=== PATIENT | female | born 1965 | race Two or more races ===

== ENCOUNTER 2017-04-29 19:27 | Emergency (ER) | payer OTHER ==
[~2017-04-29] VITALS: Ht 157.5 cm; Wt 71.2 kg
== END 2017-04-29 22:24 | disposition home or self-care (01) ==
LOC: ER 19:27 → EDBD 20:04 → ER 20:04
DX: B34.9 Viral infection, unspecified (principal); J09.X2 Influenza due to identified novel influenza A virus with other respiratory manifestations

== ENCOUNTER 2020-08-29 01:09 | Emergency (ER) | payer OTHER ==
[~2020-08-29] VITALS: Ht 157.5 cm; Wt 60.3 kg
[2020-08-29] MEDS ORDERED: FORTAMET500 MG (01:24)
[2020-08-29] MEDS ORDERED: ZOFRAN8 MG PO ×2 (05:19)
[2020-08-29] MEDS ORDERED: LEVSIN/SL0.125 MG SL (05:19)
[2020-08-29] MEDS ORDERED: PEPCID40 MG PO (05:19)
[2020-08-29] MEDS ORDERED: PROTONIX40 MG PO (05:19)
== END 2020-08-29 05:51 | disposition home or self-care (01) ==
LOC: ER 01:09
DX: K29.70 Gastritis, unspecified, without bleeding (principal); E11.9 Type 2 diabetes mellitus without complications

== ENCOUNTER 2020-11-22 02:04 | Emergency (ER) | payer OTHER ==
[~2020-11-22] VITALS: Ht 157.5 cm; Wt 59.4 kg
[~2020-11-22 02:04] MED LIST: FORTAMET500 MG; LEVSIN/SL0.125 MG SL; PEPCID40 MG PO; PROTONIX40 MG PO; ZOFRAN8 MG PO
[2020-11-22] MEDS ORDERED: COZAAR25 MG (02:55)
== END 2020-11-22 05:14 | disposition home or self-care (01) ==
LOC: ER 02:04
DX: R05.9 Cough, unspecified (principal); Z03.818 Encounter for observation for suspected exposure to other biological agents ruled out

== ENCOUNTER 2021-01-20 22:55 | Emergency (ER) | payer OTHER ==
[~2021-01-20] VITALS: Ht 157.5 cm; Wt 61.7 kg
[~2021-01-20 22:55] MED LIST changes: +COZAAR25 MG
[2021-01-20] MEDS ORDERED: METFORMIN HCL1000 M2 (23:12)
[2021-01-20] MEDS ORDERED: TRADJENTA5 MG (23:13)
[2021-01-21] MEDS ORDERED: ACETAMINOPHEN650 M2 PO (02:49)
[2021-01-21] MEDS ORDERED: MUCINEX DM ER1 EAC1 PO (02:49)
== END 2021-01-21 02:53 | disposition home or self-care (01) ==
LOC: ER 22:55
DX: J11.1 Influenza due to unidentified influenza virus with other respiratory manifestations (principal); Z20.822 Contact with and (suspected) exposure to COVID-19

== ENCOUNTER 2021-01-22 23:55 | Inpatient (IN) | payer OTHER ==
[~2021-01-22] VITALS: Ht 66 cm; Wt 61.7 kg
[~2021-01-22 23:55] MED LIST changes: +ACETAMINOPHEN650 M2 PO; +METFORMIN HCL1000 M2; +MUCINEX DM ER1 EAC1 PO; +TRADJENTA5 MG
--- NOTE | 2021-01-23 00:04 | NUR ---
PTE SE RECIBE POR ASMA Y DIFICULDAD PARA RESPIRAL REFIERE PTE.
--- NOTE | 2021-01-23 00:17 | NUR ---
NOTA PTE REFIERE TIENE INFLUENZA.
--- NOTE | 2021-01-23 00:42 | NUR ---
TX. OFRECIDO POR MIS. LIAN QUIEN ORIENTA AL PACIENTE SOBRE EL TX. CANALIZA Y ADMINISTRA MEDICAMENTOS GARRY ORDEN MEDICA.
--- NOTE | 2021-01-23 07:28 | NUR ---
SE RECIBE PACIENTE DE TURNO ANTERIOR, ALERTA Y ORIENTADA X 3, EN JAUN CON MEDIDAS DE SEGURIDAD. H/L PATENTE, CATARINA DE EDEMAS Y ENROJECIMIENTOS. PENDIENTE CHEST XRAY Y CONSULTA CON DR. CAROLINE HERNANDEZ.
--- NOTE | 2021-01-23 10:38 | NUR ---
SE LE VUELVE A COLOCAR UN SALIN LOCK EN EL BRAZO DERECESAR YA QUE LA VENA DEL BRAZO MANUEL NO ESTABA PATENTE.
--- NOTE | 2021-01-23 12:39 | NUR ---
EVALUADA POR QUIEN ORDENA TRATAMIENTO MEDICO, PACIENTE ES ADMITIDA A PISO. SE LE SON MUESTRAS GARRY ORDEN MEDICA, TOMANDO MEDIDAS ASEPTICAS. SE LE ADMINISTRAN MEDICAMENTOS GARRY ORDEN MEDICA Y SE MANTIENE EN OBSERVACION PARA TRASLADO A PISO. SE LE REALIZA EKG, EVALUADO POR ZACK.
== END 2021-01-26 15:42 | disposition home or self-care (01) | DRG 203 ==
LOC: ER 23:55 → SURH 01-23 16:28
PROVIDERS: ADMIT Internal Medicine; ATTEND Internal Medicine
PROC: 3E0F7SF Introduction of Other Gas into Respiratory Tract, Via Natural or Artificial Opening (ICD-10-PCS; principal; 2021-01-23)
DX: J45.998 Other asthma (principal); I10 Essential (primary) hypertension; Z20.822 Contact with and (suspected) exposure to COVID-19; E11.9 Type 2 diabetes mellitus without complications; Z79.4 Long term (current) use of insulin

== ENCOUNTER 2021-01-27 04:38 | Emergency (ER) | payer OTHER ==
[~2021-01-27] VITALS: Ht 157.5 cm; Wt 59.9 kg
== END 2021-01-27 10:43 | disposition home or self-care (01) ==
LOC: ER 04:38
DX: J40 Bronchitis, not specified as acute or chronic (principal); I10 Essential (primary) hypertension; E11.9 Type 2 diabetes mellitus without complications; Z20.822 Contact with and (suspected) exposure to COVID-19

== ENCOUNTER 2021-02-01 07:34 | Emergency (ER) | payer OTHER ==
[~2021-02-01] VITALS: Ht 157.5 cm; Wt 59.9 kg
[2021-02-01] MEDS ORDERED: NORFLEX100MG PO (10:14)
[2021-02-01] MEDS ORDERED: ZANAFLEX4 M1 PO (10:14)
[2021-02-01] MEDS ORDERED: NABUMETONE500 MG PO (10:14)
== END 2021-02-01 10:26 | disposition home or self-care (01) ==
LOC: ER 07:34
DX: M54.59 Other low back pain (principal); M79.604 Pain in right leg

== ENCOUNTER 2021-02-02 03:38 | Emergency (ER) | payer OTHER ==
[~2021-02-02] VITALS: Ht 157.5 cm; Wt 59.4 kg
[~2021-02-02 03:38] MED LIST changes: +NABUMETONE500 MG PO; +NORFLEX100MG PO; +ZANAFLEX4 M1 PO
== END 2021-02-02 13:00 | disposition home or self-care (01) ==
LOC: ER 03:38
DX: M25.559 Pain in unspecified hip (principal); M19.90 Unspecified osteoarthritis, unspecified site; E11.9 Type 2 diabetes mellitus without complications; I10 Essential (primary) hypertension; Z79.84 Long term (current) use of oral hypoglycemic drugs

== ENCOUNTER 2021-07-20 04:39 | Emergency (ER) | payer OTHER ==
[~2021-07-20] VITALS: Ht 157.5 cm; Wt 62.6 kg
== END 2021-07-20 10:12 | disposition home or self-care (01) ==
LOC: ER 04:39
DX: M25.551 Pain in right hip (principal)

== ENCOUNTER → 2021-07-23 | Emergency (ER) | payer OTHER ==
[~2021-07-23] VITALS: Ht 157.5 cm; Wt 62.6 kg
[~2021-07-23] MED LIST changes: +PERCOCET 5-3251 EACH PO; +ULTRAM50 MG PO
== END | disposition home or self-care (01) ==
LOC: ER 04:05
DX: M54.50 Low back pain, unspecified (principal)

== ENCOUNTER 2021-07-24 04:52 | Emergency (ER) | payer OTHER ==
[~2021-07-24] VITALS: Ht 157.5 cm; Wt 62.6 kg
[~2021-07-24 04:52] MED LIST changes: -ULTRAM50 MG PO
[2021-07-24] MEDS ORDERED: ULTRAM50 MG PO (07:08)
== END 2021-07-24 07:32 ==
LOC: ER 04:52
DX: M25.551 Pain in right hip (principal); E11.9 Type 2 diabetes mellitus without complications; Z79.4 Long term (current) use of insulin; I10 Essential (primary) hypertension

== ENCOUNTER 2022-06-05 03:00 | Emergency (ER) | payer OTHER ==
[~2022-06-05] VITALS: Ht 157.5 cm; Wt 71.7 kg
[~2022-06-05 03:00] MED LIST changes: +ULTRAM50 MG PO
== END 2022-06-05 08:02 | disposition home or self-care (01) ==
LOC: ER 03:00
DX: R05.8 Other specified cough (principal); E13.69 Other specified diabetes mellitus with other specified complication; I10 Essential (primary) hypertension

== ENCOUNTER 2022-12-08 01:27 | Emergency (ER) | payer OTHER ==
[~2022-12-08] VITALS: Ht 157.5 cm; Wt 68.9 kg
== END 2022-12-08 02:56 | disposition home or self-care (01) ==
LOC: ER 01:27
DX: K59.1 Functional diarrhea (principal)

== ENCOUNTER 2022-12-09 01:23 | Emergency (ER) | payer OTHER ==
[~2022-12-09] VITALS: Ht 157.5 cm; Wt 68.9 kg
== END 2022-12-09 06:47 | disposition home or self-care (01) ==
LOC: ER 01:23
DX: K29.70 Gastritis, unspecified, without bleeding (principal)

== ENCOUNTER 2022-12-13 18:34 | Emergency (ER) | payer OTHER ==
[~2022-12-13] VITALS: Ht 162.6 cm; Wt 99.8 kg
[2022-12-13 20:54] LABS: URINE APPEARANCE Clear; URINE BILIRRUBIN Negative (NEGATIVE); URINE BLOOD Trace; URINE COLOR Yellow; URINE LEUKOCYTE Negative; URINE NITRATE Negative; URINE UROBILINOGEN 0.2 E.U./dl
[2022-12-13 20:56] LABS: HEMATOCRIT 34.6 % (36.0-45.00); HEMOGLOBIN 11.4 g/dL (12.0-15.00); MEAN CELL VOLUME 82.7 fL (80.00-100.00); MEAN CORPUSCULAR HEMOGLOBIN 27.1 pg (27.00-32.0); MEAN CORPUSCULAR HGB CONC 32.8 g/dl (32.0-36.0); PLATELET COUNT 327 K/uL (150-450); RED BLOOD COUNT 4.18 M/uL (4.00-6.00); RED CELL DISTRIBUTION WIDTH 13.5 % (11.5-14.5)
[2022-12-13 20:58] LABS: URINE BACTERIA 2.5 uL (0.0-1933); URINE EPITHELIAL CELLS 5.2 uL (0.0-38.8); URINE GLUCOSE >=1000 MG/DL (NEGATIVE); URINE PROTEIN 100 (NEGATIVE); URINE RBC 5.6 uL (0.0-20.8); URINE WBC 2.3 uL (0.0-23.2)
[2022-12-13 21:57] LABS: ABG PH 7.444 (7.35-7.45); ABG PO2 100.1 mmHg (80-100); ABG pCO2 34.7 mmHg (35-45); BASE EXCESS -0.2 mmol/l; BICARBONATE 23.3 mmol/l (23-25); Tco2 24.4 mmol/l
[2022-12-13 22:01] LABS: allen test SATISFACTORY; o2 21 %; puncture site RADIAL RIGHT
== END 2022-12-13 22:15 | disposition home or self-care (01) ==
LOC: ER 18:34
PROVIDERS: General Practice
DX: R05.9 Cough, unspecified (principal); Z87.09 Personal history of other diseases of the respiratory system; E11.9 Type 2 diabetes mellitus without complications; Z79.84 Long term (current) use of oral hypoglycemic drugs; I10 Essential (primary) hypertension; Z20.822 Contact with and (suspected) exposure to COVID-19

== ENCOUNTER 2023-09-10 16:52 | Emergency (ER) | payer OTHER ==
[~2023-09-10] VITALS: Ht 157.5 cm; Wt 68.9 kg
[2023-09-10] MEDS ORDERED: COZAAR100 MG PO (17:30)
[2023-09-10] MEDS ORDERED: METFORMIN HCL1000 M2 PO (17:31)
[2023-09-10] MEDS ORDERED: ONDANSETRON HCL 2 MG/ML VIAL ONE (18:29)
[2023-09-10] MEDS ORDERED: 0.9 % SODIUM CHLORIDE 1,000 ML IV ONE (18:30)
[2023-09-10] MEDS ORDERED: ONDANSETRON HCL 2 MG/ML VIAL IV ONE (18:30)
[2023-09-10 19:13] LABS: HEMATOCRIT 35.6 % (36.0-45.00); HEMOGLOBIN 11.8 g/dL (12.0-15.00); MEAN CORPUSCULAR HEMOGLOBIN 27.8 pg (27.00-32.0); MEAN CORPUSCULAR HGB CONC 33.1 g/dl (32.0-36.0); PLATELET COUNT 220 K/uL (150-450); RED BLOOD COUNT 4.24 M/uL (4.00-6.00); RED CELL DISTRIBUTION WIDTH 13.6 % (11.5-14.5)
[2023-09-10 19:24] LABS: ALBUMIN 3.6 gm/dL (3.4-5.0); BILIRUBIN TOTAL 0.3 mg/dL (0.3-1.2); CALCIUM 9.4 mg/dL (8.5-10.1); CREATININE SERUM 0.64 mg/dL (0.55-1.02); GFR 95.99; GLOBULINA 3.6 G/DL (2.4-3.5); POTASSIUM 4.27 mEq/L (3.5-5.1); TOTAL PROTEIN 7.2 gm/dL (6.4-8.2)
[2023-09-10 21:32] LABS: PH,URINE 6.5 (5.0-8.0); URINE APPEARANCE Clear; URINE BILIRRUBIN Negative (NEGATIVE); URINE BLOOD Negative; URINE COLOR Yellow; URINE LEUKOCYTE Negative; URINE NITRATE Negative; URINE PROTEIN Trace (NEGATIVE)
[2023-09-10 21:36] LABS: URINE BACTERIA 57.9 uL (0.0-1933); URINE EPITHELIAL CELLS 2.4 uL (0.0-38.8); URINE RBC 4.1 uL (0.0-20.8); URINE WBC 3.7 uL (0.0-23.2)
[2023-09-10 21:48] LABS: URINE GLUCOSE 250 MG/DL (NEGATIVE)
[2023-09-11] MEDS ORDERED: FAMOTIDINE/PF 20 MG/2 ML VIAL IV PUSH STA (01:43)
[2023-09-11] MEDS ORDERED: PEPCID40 MG PO (01:47)
[2023-09-11] MEDS ORDERED: ONDANSETRON ODT8 MG PO (01:47)
[2023-09-11] MEDS ORDERED: INTESTINEX680 M2 PO (01:47)
== END 2023-09-11 02:04 ==
LOC: ER 16:53
PROVIDERS: Emergency Medicine
DX: K52.89 Other specified noninfective gastroenteritis and colitis (principal); I10 Essential (primary) hypertension; Z20.822 Contact with and (suspected) exposure to COVID-19; E11.9 Type 2 diabetes mellitus without complications; Z79.84 Long term (current) use of oral hypoglycemic drugs; K44.9 Diaphragmatic hernia without obstruction or gangrene

== ENCOUNTER 2024-04-15 07:15 | Emergency (ER) | payer OTHER ==
[~2024-04-15] VITALS: Ht 157.5 cm; Wt 68.5 kg
[~2024-04-15 07:15] MED LIST changes: +COZAAR100 MG PO; +INTESTINEX680 M2 PO; +METFORMIN HCL1000 M2 PO; +ONDANSETRON ODT8 MG PO
[2024-04-15 08:55] LABS: HEMATOCRIT 38.4 % (36.0-45.00); HEMOGLOBIN 12.8 g/dL (12.0-15.00); MEAN CELL VOLUME 84.3 fL (80.00-100.00); MEAN CORPUSCULAR HEMOGLOBIN 28.1 pg (27.00-32.0); MEAN CORPUSCULAR HGB CONC 33.3 g/dl (32.0-36.0); PLATELET COUNT 264 K/uL (150-450); RED BLOOD COUNT 4.55 M/uL (4.00-6.00); RED CELL DISTRIBUTION WIDTH 13.3 % (11.5-14.5)
[2024-04-15 09:15] LABS: CALCIUM 10.2 mg/dL (8.5-10.1); CREATININE SERUM 0.66 mg/dL (0.55-1.02); GFR 92.31; POTASSIUM 4.64 mEq/L (3.5-5.1)
[2024-04-15 09:40] LABS: URINE APPEARANCE Clear; URINE BILIRRUBIN Negative (NEGATIVE); URINE BLOOD Negative; URINE COLOR Yellow; URINE GLUCOSE Negative (NEGATIVE); URINE KETONE Negative (NEGATIVE); URINE LEUKOCYTE Trace; URINE NITRATE Negative; URINE PROTEIN Trace (NEGATIVE); URINE UROBILINOGEN 0.2 E.U./dl
[2024-04-15 09:44] LABS: URINE BACTERIA 8.5 uL (0.0-1933); URINE EPITHELIAL CELLS 6.4 uL (0.0-38.8); URINE RBC 4.2 uL (0.0-20.8); URINE WBC 6.9 uL (0.0-23.2)
[2024-04-15 09:58] LABS: URINE CAST 0.14 uL (0.0-1.40)
== END 2024-04-15 11:18 | disposition home or self-care (01) ==
LOC: ER 07:18
PROVIDERS: General Practice
DX: R10.9 Unspecified abdominal pain (principal); E78.00 Pure hypercholesterolemia, unspecified; I10 Essential (primary) hypertension

== ENCOUNTER 2024-06-12 18:24 | Emergency (ER) | payer OTHER ==
[~2024-06-12] VITALS: Ht 157.5 cm; Wt 68.0 kg
[2024-06-12] MEDS ORDERED: TRADJENTA5 MG PO (19:11)
== END 2024-06-12 19:47 | disposition home or self-care (01) ==
LOC: ER 18:24
DX: R05.9 Cough, unspecified (principal); E11.9 Type 2 diabetes mellitus without complications; Z79.84 Long term (current) use of oral hypoglycemic drugs; I10 Essential (primary) hypertension

== ENCOUNTER 2024-09-09 02:42 | Emergency (ER) | payer OTHER ==
[~2024-09-09] VITALS: Ht 157.5 cm; Wt 68.0 kg
[~2024-09-09 02:42] MED LIST changes: +TRADJENTA5 MG PO
[2024-09-09] MEDS ORDERED: JENTADUETO XR1 EAC1 PO (02:48)
[2024-09-09] MEDS ORDERED: GUAIFENESIN 200 MG/10 ML BLIST.PACK PO STA (05:00)
[2024-09-09] MEDS ORDERED: GUAIFENESIN 200 MG/10 ML BLIST.PACK PO ONE (05:08)
[2024-09-09] MEDS ORDERED: ZYNCOF 20-400120 ML PO (06:27)
[2024-09-09] MEDS ORDERED: SINGULAIR10 MG PO (06:27)
== END 2024-09-09 06:33 ==
LOC: ER 02:42
DX: R05.8 Other specified cough (principal); J40 Bronchitis, not specified as acute or chronic; E11.9 Type 2 diabetes mellitus without complications; Z79.84 Long term (current) use of oral hypoglycemic drugs; I10 Essential (primary) hypertension

== ENCOUNTER 2024-09-14 08:31 | Emergency (ER) | payer OTHER ==
[~2024-09-14] VITALS: Ht 152.4 cm; Wt 66.2 kg
[~2024-09-14 08:31] MED LIST changes: +JENTADUETO XR1 EAC1 PO; +SINGULAIR10 MG PO; +ZYNCOF 20-400120 ML PO
[2024-09-14] MEDS ORDERED: BENZONATATE 200 MG CAPSULE PO ONE (09:00)
[2024-09-14] MEDS ORDERED: KETOROLAC TROMETHAMINE 60 MG VIAL IM ONE (09:00)
[2024-09-14 09:57] LABS: BASO % 0.6 % (0.1-1.2); EOS # 0.23 (0.04-0.54); EOS % 3.7 % (0.7-7.0); LYMPH # 1.72 (1.18-3.74); LYMPH % 27.8 % (19.3-53.1); MEAN PLATELET VOLUME 11.00 fl (9.4-12.4); MONO # 0.68 (0.24-0.82); MONO % 11.0 % (4.7-12.5); NEUT # 3.49 (1.56-6.13); NEUT % 56.6 % (34.0-71.1); RED CELL DISTRIBUTION WIDTH 12.8 % (11.6-14.4)
[2024-09-14 10:28] LABS: ALT/SGPT 22.0 U/L (12-78); AST/SGOT 18.0 U/L (15-37); BILIRUBIN TOTAL 0.4 mg/dL (0.3-1.2); BUN CREA RATIO 32.0 (7.0-25.0); CREATININE SERUM 0.75 mg/dL (0.55-1.02); GFR 79.65; GLOBULINA 3.6 G/DL (2.4-3.5); GLUCOSE FASTING 157.0 mg/dL (65-100); OSMOLALITY SERUM 285.0 MOSM/KG (275-295)
[2024-09-14 10:57] LABS: COVID-19 AG NEGATIVE (NEGATIVE)
[2024-09-14 11:17] LABS: ABG PH 7.402 (7.35-7.45)
[2024-09-14 11:18] LABS: ABG PO2 97.0 mmHg (80-100); BICARBONATE 23.7 mmol/l (23-25); o2 21 %
[2024-09-14] MEDS ORDERED: SINGULAIR10 MG PO (11:22)
[2024-09-14] MEDS ORDERED: BENZONATATE200 M1 PO (11:22)
[2024-09-14] MEDS ORDERED: PROAIR RESPICL90 MCG IH (11:22)
[2024-09-14] MEDS ORDERED: LEVALBUTER0.63 MG/3 IH (11:22)
[2024-09-14] MEDS ORDERED: PEPCID AC20 MG PO (11:22)
== END 2024-09-14 11:28 | disposition home or self-care (01) ==
LOC: ER 08:31
PROVIDERS: General Practice
DX: R05.9 Cough, unspecified (principal); Z20.822 Contact with and (suspected) exposure to COVID-19; E11.9 Type 2 diabetes mellitus without complications; Z79.84 Long term (current) use of oral hypoglycemic drugs; I10 Essential (primary) hypertension

== ENCOUNTER 2024-09-18 04:47 | Emergency (ER) | payer OTHER ==
[~2024-09-18] VITALS: Ht 157.5 cm; Wt 68.0 kg
[~2024-09-18 04:47] MED LIST changes: +BENZONATATE200 M1 PO; +LEVALBUTER0.63 MG/3 IH; +PEPCID AC20 MG PO; +PROAIR RESPICL90 MCG IH
[2024-09-18] MEDS ORDERED: HYDROCODONE/CHLORPHEN P-STIREX 5 ML ML PO STA (06:19)
[2024-09-18 07:07] LABS: BASO % 0.5 % (0.1-1.2); EOS # 0.35 (0.04-0.54); EOS % 4.3 % (0.7-7.0); LYMPH # 2.81 (1.18-3.74); LYMPH % 34.5 % (19.3-53.1); MEAN PLATELET VOLUME 11.00 fl (9.4-12.4); MONO # 0.65 (0.24-0.82); MONO % 8.0 % (4.7-12.5); NEUT # 4.27 (1.56-6.13); NEUT % 52.5 % (34.0-71.1); RED CELL DISTRIBUTION WIDTH 12.5 % (11.6-14.4)
[2024-09-18 08:57] LABS: COVID-19 AG POSITIVE (NEGATIVE)
== END 2024-09-18 11:02 | disposition home or self-care (01) ==
LOC: ER 04:47
DX: U07.1 COVID-19 (principal); E11.9 Type 2 diabetes mellitus without complications; Z79.84 Long term (current) use of oral hypoglycemic drugs; I10 Essential (primary) hypertension

== ENCOUNTER 2024-09-24 19:14 | Emergency (ER) | payer OTHER ==
[~2024-09-24] VITALS: Ht 157.5 cm; Wt 68.0 kg
== END 2024-09-25 01:46 | disposition home or self-care (01) ==
LOC: ER 19:14
DX: J30.9 Allergic rhinitis, unspecified (principal); R05.9 Cough, unspecified; I10 Essential (primary) hypertension; E11.9 Type 2 diabetes mellitus without complications; Z79.84 Long term (current) use of oral hypoglycemic drugs

== ENCOUNTER 2025-01-21 15:16 | Emergency (ER) | payer OTHER ==
[~2025-01-21] VITALS: Ht 157.5 cm; Wt 68.0 kg
[2025-01-21] MEDS ORDERED: GUAIFENESIN/DEXTROMETHORPHAN 100MG/10ML BLIST.PACK PO ONE ×2 (17:00→17:32)
[2025-01-21] MEDS ORDERED: METHYLPREDNISOLONE SOD SUCC 125 MG VIAL IV ONE (17:00)
[2025-01-21] MEDS ORDERED: IPRATROPIUM/ALBUTEROL SULFATE 3 ML AMPUL.NEB IH ONE ×2 (17:00→19:17)
[2025-01-21] MEDS ORDERED: METHYLPREDNISOLONE SOD SUCC 125 MG VIAL ONE (17:32)
[2025-01-21 18:07] LABS: BASO % 0.9 % (0.1-1.2); EOS # 0.33 (0.04-0.54); EOS % 4.9 % (0.7-7.0); LYMPH # 1.56 (1.18-3.74); LYMPH % 23.0 % (19.3-53.1); MEAN PLATELET VOLUME 11.00 fl (9.4-12.4); MONO # 0.71 (0.24-0.82); MONO % 10.5 % (4.7-12.5); NEUT # 4.09 (1.56-6.13); NEUT % 60.3 % (34.0-71.1); RED CELL DISTRIBUTION WIDTH 12.9 % (11.6-14.4)
[2025-01-21 19:13] LABS: COVID-19 AG NEGATIVE (NEGATIVE)
[2025-01-21] MEDS ORDERED: XOPENEX CO1.25 MG/0. IH (20:58)
[2025-01-21] MEDS ORDERED: ZITHROMAX500 MG PO (20:58)
[2025-01-21] MEDS ORDERED: BENZONATATE200 M1 PO (20:58)
[2025-01-21] MEDS ORDERED: MEDROLPACK PO (20:58)
[2025-01-21] MEDS ORDERED: IPRATROPIU0.2 MG/1 M IH (20:58)
== END 2025-01-21 21:18 | disposition home or self-care (01) ==
LOC: ER 15:17
PROVIDERS: General Practice
DX: J00 Acute nasopharyngitis [common cold] (principal); I10 Essential (primary) hypertension; Z20.822 Contact with and (suspected) exposure to COVID-19; E11.9 Type 2 diabetes mellitus without complications; Z79.84 Long term (current) use of oral hypoglycemic drugs

== ENCOUNTER 2025-01-24 14:31 | Emergency (ER) | payer OTHER ==
[~2025-01-24] VITALS: Ht 157.5 cm; Wt 65.8 kg
[~2025-01-24 14:31] MED LIST changes: +IPRATROPIU0.2 MG/1 M IH; +MEDROLPACK PO; +XOPENEX CO1.25 MG/0. IH; +ZITHROMAX500 MG PO
[2025-01-24] MEDS ORDERED: MAGNESIUM SULFATE IN WATER 50 ML IV ONE (15:45)
[2025-01-24] MEDS ORDERED: IPRATROPIUM BROMIDE 0.5 MG/2.5 ML AMPUL.NEB IH ONE ×2 (15:45→16:07)
[2025-01-24] MEDS ORDERED: LEVALBUTEROL HCL 1.25 MG/3 ML SOLUTION IH ONE ×2 (15:45→16:07)
[2025-01-24 16:57] LABS: BASO % 0.3 % (0.1-1.2); EOS # 0.04 (0.04-0.54); EOS % 0.5 % (0.7-7.0); LYMPH # 1.58 (1.18-3.74); LYMPH % 21.4 % (19.3-53.1); MEAN PLATELET VOLUME 10.70 fl (9.4-12.4); MONO # 0.41 (0.24-0.82); MONO % 5.5 % (4.7-12.5); NEUT # 5.32 (1.56-6.13); NEUT % 71.9 % (34.0-71.1); RED CELL DISTRIBUTION WIDTH 12.7 % (11.6-14.4)
[2025-01-24 17:24] LABS: ALT/SGPT 34.0 U/L (12-78); AST/SGOT 17.0 U/L (15-37); BILIRUBIN TOTAL 0.26 mg/dL (0.3-1.2); BUN CREA RATIO 24.0 (7.0-25.0); CREATININE SERUM 0.63 mg/dL (0.55-1.02); GFR 97.06; GLOBULINA 4.0 G/DL (2.4-3.5); GLUCOSE FASTING 173.0 mg/dL (65-100); OSMOLALITY SERUM 281.0 MOSM/KG (275-295)
[2025-01-24 18:09] LABS: COVID-19 AG NEGATIVE (NEGATIVE)
[2025-01-24] MEDS ORDERED: LEVOFLOXACIN750 MG PO (19:06)
== END 2025-01-24 23:45 | disposition home or self-care (01) ==
LOC: ER 14:32
PROVIDERS: General Practice
DX: B34.9 Viral infection, unspecified (principal); J06.9 Acute upper respiratory infection, unspecified; J45.901 Unspecified asthma with (acute) exacerbation; Z20.822 Contact with and (suspected) exposure to COVID-19; I10 Essential (primary) hypertension; E11.9 Type 2 diabetes mellitus without complications; Z79.84 Long term (current) use of oral hypoglycemic drugs

== ENCOUNTER 2025-01-27 13:02 | Emergency (ER) | payer OTHER ==
[~2025-01-27] VITALS: Ht 157.5 cm; Wt 68.0 kg
[~2025-01-27 13:02] MED LIST changes: +LEVOFLOXACIN750 MG PO
[2025-01-27] MEDS ORDERED: 0.9 % SODIUM CHLORIDE 500 ML IV STA (15:24)
[2025-01-27] MEDS ORDERED: BUDESONIDE 0.5 MG/2 ML AMPUL.NEB IH STA (15:24)
[2025-01-27] MEDS ORDERED: LEVALBUTEROL HCL 1.25 MG/3 ML SOLUTION IH SCH (15:30)
[2025-01-27] MEDS ORDERED: LEVALBUTEROL HCL 0.63 MG/3 ML SOLUTION IH ONE (16:14)
[2025-01-27] MEDS ORDERED: BUDESONIDE 0.25 MG/2 ML AMPUL.NEB IH ONE (16:15)
[2025-01-27 16:19] LABS: BASO % 0.2 % (0.1-1.2); EOS # 0.04 (0.04-0.54); EOS % 0.4 % (0.7-7.0); LYMPH # 1.85 (1.18-3.74); LYMPH % 16.2 % (19.3-53.1); MEAN PLATELET VOLUME 10.30 fl (9.4-12.4); MONO # 0.58 (0.24-0.82); MONO % 5.1 % (4.7-12.5); NEUT # 8.77 (1.56-6.13); NEUT % 76.9 % (34.0-71.1); RED CELL DISTRIBUTION WIDTH 12.7 % (11.6-14.4)
[2025-01-27 17:05] LABS: URINE APPEARANCE Clear; URINE BILIRRUBIN Negative (NEGATIVE); URINE BLOOD Negative; URINE COLOR Yellow; URINE KETONE Negative (NEGATIVE); URINE LEUKOCYTE Negative; URINE NITRATE Negative; URINE PROTEIN Negative (NEGATIVE); URINE UROBILINOGEN 0.2 E.U./dl
[2025-01-27 17:06] LABS: URINE RBC 2.9 uL (0.0-20.8)
[2025-01-27 17:09] LABS: ALT/SGPT 34.0 U/L (12-78); AST/SGOT 11.0 U/L (15-37); BILIRUBIN TOTAL 0.33 mg/dL (0.3-1.2); BUN CREA RATIO 25.0 (7.0-25.0); CREATININE SERUM 0.79 mg/dL (0.55-1.02); GFR 74.75; GLOBULINA 3.9 G/DL (2.4-3.5); OSMOLALITY SERUM 283.0 MOSM/KG (275-295)
[2025-01-27 17:14] LABS: GLUCOSE FASTING 222.0 mg/dL (65-100)
[2025-01-27 17:20] LABS: COVID-19 AG NEGATIVE (NEGATIVE)
[2025-01-27 17:25] LABS: URINE EPITHELIAL CELLS 0.1 uL (0.0-38.8); URINE GLUCOSE 500 MG/DL (NEGATIVE); URINE WBC 0.7 uL (0.0-23.2)
[2025-01-27 17:26] LABS: URINE BACTERIA 2.2 uL (0.0-1933); URINE CAST 0.00 uL (0.0-1.40)
[2025-01-27] MEDS ORDERED: levoFLOXacin IN DEXTROSE 5 % 500MG/100ML PIGGYBAG IV STA (17:46)
[2025-01-27] MEDS ORDERED: levoFLOXacin IN DEXTROSE 5 % 500MG/100ML PIGGYBAG IV ONE (18:39)
[2025-01-27] MEDS ORDERED: GUAIFENESIN 200 MG/10 ML BLIST.PACK PO STA (20:19)
[2025-01-27] MEDS ORDERED: METHYLPREDNISOLONE SOD SUCC 125 MG VIAL IV STA (20:20)
[2025-01-27] MEDS ORDERED: METHYLPREDNISOLONE SOD SUCC 125 MG VIAL ONE (20:36)
[2025-01-27] MEDS ORDERED: GUAIFENESIN 200 MG/10 ML BLIST.PACK PO ONE (20:36)
== END 2025-01-27 21:52 | disposition home or self-care (01) ==
LOC: ER 13:02
PROVIDERS: General Practice
DX: R05.8 Other specified cough (principal); E11.9 Type 2 diabetes mellitus without complications; Z79.84 Long term (current) use of oral hypoglycemic drugs; Z20.822 Contact with and (suspected) exposure to COVID-19